=== PATIENT | male | born 1955 | race Caucasian/White ===

== ENCOUNTER 2022-08-21 09:21 | Outpatient (CLI) | payer MEDICARE, SELFPAY ==
--- NOTE | ~2022-08-21 | NM_ITS ---
EXAMINATION: NM bone scan whole body DATE: 08/21/2022 13:14 INDICATION: Malignant neoplasm of the prostate TECHNIQUE: 25.1 mCi Tc-99m HDP was administered intravenously. Delayed whole-body scintigrams were o btained. COMPARISON: There are no relevant imaging studies at our institution. FINDINGS: Relatively symmetric prominent increased uptake at the radial aspect of the bilateral carpi and addit ional mild symmetric degenerative uptake at the bilateral acromioclavicular and sternoclavicular join ts in typical pattern for degenerative osteoarthritis. No other suspicious foci of abnormal bone upta ke to suggest osseous metastatic disease. IMPRESSION: 1. No lesion suspicious for osseous metastatic disease. Reviewed, dictated and finalized at location A.
== END 2022-08-21 09:22 | disposition home or self-care (01) ==
LOC: CHSIMG 09:23
PROVIDERS: PCP Family Medicine; Visit Provider Urology
DX: C61 Malignant neoplasm of prostate (principal)
CPT/HCPCS: 78306; A9561

== ENCOUNTER 2022-09-18 08:20 | Outpatient (CLI) | payer MEDICARE, SELFPAY ==
--- NOTE | ~2022-09-18 | CT_ITS ---
CT of the Abdomen and Pelvis: Indication: Prostate cancer Technique: 2.5 mm axial scans were obtained through the abdomen and pelvis following intravenous adm inistration of 100 cc of Omnipaque 350. Dose reduction technique was used on this scan by utilizing a utomated exposure control and iterative reconstruction technique. The dose-length product (DLP) was 4 97.61 mGy-cm. Findings: Scans through the lung bases are unremarkable. The liver, spleen, pancreas, adrenals and left kidney are within normal limits. Small gallstones are present. 5 mm nonobstructing right renal stone noted. There are atherosclerotic calcifications of the aorta. No lymphadenopathy. No bowel obstruction or bowel wall thickening. There is no evidence to suggest acute appendicitis. Images through the pelvis were performed. Urinary bladder unremarkable. Prostate gland and seminal ve sicles are unremarkable. No ascites. Impression: No evidence for metastatic disease. Cholelithiasis. 5 mm nonobstructing right renal stone. Reviewed, dictated and finalized at location . Impression: No evidence for metastatic disease. Cholelithiasis. 5 mm nonobstructing right renal stone.
== END 2022-09-18 08:21 | disposition home or self-care (01) ==
LOC: CHSIMG 08:22
PROVIDERS: PCP Family Medicine; Visit Provider Urology
DX: C61 Malignant neoplasm of prostate (principal); K80.20 Calculus of gallbladder without cholecystitis without obstruction; N20.0 Calculus of kidney
CPT/HCPCS: 74177; Q9967

== ENCOUNTER 2022-12-08 18:51 | Outpatient (CLI) | payer MEDICARE, SELFPAY ==
[2022-12-08 20:38] LABS: Prostate Specific Antigen < 0.1 ng/mL (< OR = 4.0)
== END 2022-12-08 18:52 | disposition home or self-care (01) ==
LOC: CHSLAB 18:52
PROVIDERS: Urology; PCP Physician Assistant; Visit Provider Physician Assistant
DX: R97.20 Elevated prostate specific antigen [PSA] (principal)
CPT/HCPCS: 36415; 84153

== ENCOUNTER 2023-03-12 11:23 | Outpatient (CLI) | payer MEDICARE, SELFPAY ==
[2023-03-12 12:48] LABS: Prostate Specific Antigen < 0.1 ng/mL (< OR = 4.0)
== END 2023-03-12 11:24 | disposition home or self-care (01) ==
LOC: CHSLAB 11:28
PROVIDERS: PCP Family Medicine; Visit Provider Urology
DX: C61 Malignant neoplasm of prostate (principal)
CPT/HCPCS: 36415; 84153